=== PATIENT | female | born 1970 | race Hispanic/Latino ===

== ENCOUNTER 2017-04-13 16:07 | Emergency (ER) | payer SELFPAY ==
[2017-04-13 17:03] VITALS: BP 109/74
--- NOTE | 2017-04-13 17:27 | Emergency Department Report ---
ED Lower Extremity HPI - General Chief Complaint: Extremity Injury, Lower Stated Complaint: LEFT LEG AND ANKLE PAIN Time Seen by Provider: 04/13/17 17:24 Source: patient Mode of arrival: Ambulatory Limitations: No Limitations - History of Present Illness MD Complaint: ankle injury, other (GONSALVES) -: Sudden Injury: Leg: Left Type of Injury: blunt, other (PALET FELL ON PT AT WORK) Place: work Severity: moderate Improves With: nothing Worsens With: movement Context: direct blow Associated Symptoms: swelling, unable to bear weight. denies: snap/pop sensation, numbness, tingling, able to partially bear weight, ambulatory - Related Data Previous Rx's Medication Instructions Recorded Last Taken Type traMADol [Ultram] 50 mg PO Q6HR PRN #20 tablet 04/13/17 Unknown Rx Allergies Allergy/AdvReac Type Severity Reaction Status Date / Time naproxen sodium [From Aleve] Allergy Shortness Verified 12/25/15 20:57 of Breath ED Review of Systems ROS: Stated complaint: LEFT LEG AND ANKLE PAIN Other details as noted in HPI Comment: All other systems reviewed and negative Musculoskeletal: other (LEG PAIN) Skin: other (LEG ABRASION) ED Past Medical Hx - Past Medical History Previous Medical History?: No - Surgical History Past Surgical History?: Yes Additional Surgical History: TUBAL LIGATION - Social History Smoking Status: Current Every Day Smoker Substance Use Type: None - Medications Home Medications: Home Medications Medication Instructions Recorded Confirmed Last Taken Type traMADol [Ultram] 50 mg PO Q6HR PRN #20 tablet 04/13/17 Unknown Rx ED Physical Exam - General Limitations: No Limitations General appearance: alert - Head Head exam: Present: atraumatic - Eye Eye exam: Present: normal appearance - ENT ENT exam: Present: mucous membranes moist - Neck Neck exam: Present: normal inspection - Respiratory Respiratory exam: Present: normal lung sounds bilaterally - Cardiovascular Cardiovascular Exam: Present: regular rate - GI/Abdominal GI/Abdominal exam: Present: soft - Expanded Lower Extremity Exam Left Hip exam: Present: normal inspection Upper Leg exam: Present: normal inspection Knee exam: Present: normal inspection Lower Leg exam: Present: abrasion Ankle exam: Present: tenderness, swelling (LAT), abrasion (SWELLING LAT; ABRASION GONSALVES) Foot/Toe exam: Present: normal inspection Neuro vascular tendon exam: Present: no vascular compromise Gait: Positive: observed and limited by pain 1 - ABRASION 2 - SWELLING - Back Exam Back exam: Present: normal inspection, full ROM - Neurological Exam Neurological exam: Present: alert, oriented X3, CN II-XII intact, reflexes normal - Psychiatric Psychiatric exam: Present: normal affect, normal mood - Skin Skin exam: Present: warm, dry, abrasion ED Course Vital Signs 04/13/17 16:59 Temperature 98.6 F Pulse Rate 91 H Respiratory 16 Rate Blood Pressure 109/74 O2 Sat by Pulse 99 Oximetry - Reevaluation(s) Reevaluation #1: 04/13/17 18:18 TO ER P A PALLET FELL ON HER LEG AT WORK TODAY TDAP NEEDED WOUND CARE XRAY NOTED SPLINT CRUTCH MEDICATED FOR PAIN DC HOME W ORTHO FOLLOW UP. ED Lower Extremity MDM - Radiology Data Radiology results: report reviewed, image reviewed - Medical Decision Making SEE NOTE - Differential Diagnosis FX Critical care attestation.: If time is entered above; I have spent that time in minutes in the direct care of this critically ill patient, excluding procedure time. ED Disposition Clinical Impression: Tibia fracture, Abrasion, Contusion Disposition: DC- TO HOME OR SELFCARE Is pt being admited?: No Does the pt Need Aspirin: No Condition: Stable Instructions: Leg Fracture (ED) Additional Instructions: TIBIA AVULSION FRACTURE SPLINT CRUTCHES ICE ELEVATE MED FOR PAIN FOLLOW UP WITH ORTHO Prescriptions: traMADol [Ultram] 50 mg PO Q6HR PRN #20 tablet PRN Reason: Pain Referrals: PRIMARY CARE, [Primary Care Provider] - 3-5 Days LONDON CUELLO MD [Staff Physician] - 3-5 Days Time of Disposition: 18:08
--- NOTE | 2017-04-13 18:02 | XRay Report ---
FINAL REPORT EXAM: XR ANKLE 3+V LT HISTORY: pain,edema,injury TECHNIQUE: AP, lateral, and oblique views of the left ankle PRIORS: None. FINDINGS: There is marked swelling over the lateral ankle. The distal fibula demonstrate rotation, much of which appears remote. However, possibility of an acute avulsion fracture is suspected laterally off the distal fibula. There is no evidence for dislocation. No radiopaque foreign bodies are seen. The ankle mortise is intact. Bony mineralization is normal and joint spaces are maintained. Small spur off the plantar aspect of the calcaneus is present. IMPRESSION: Findings suspicious for an acute avulsion fracture involving the distal fibula with significant overlying swelling.
[2017-04-13] MEDS ORDERED: NORCO 7.5/325 PO ONE (18:06)
[2017-04-13] MEDS ORDERED: BOOSTRIX IM ONE (18:06)
== END 2017-04-13 19:22 | disposition home or self-care (01) ==
LOC: ED 16:07
DX: S82.392A Other fracture of lower end of left tibia, initial encounter for closed fracture (principal); F17.200 Nicotine dependence, unspecified, uncomplicated; Z98.51 Tubal ligation status; Z88.8 Allergy status to other drugs, medicaments and biological substances; W20.8XXA Other cause of strike by thrown, projected or falling object, initial encounter; Y93.89 Activity, other specified; Y99.8 Other external cause status; Y92.89 Other specified places as the place of occurrence of the external cause
CPT/HCPCS: 90471; 90715